=== PATIENT | female | born 1960 | race Two or more races ===

== ENCOUNTER 2016-11-28 08:08 | Day surgery (SDC) | payer BC ==
--- NOTE | 2016-11-27 12:22 | Pre-Procedure Note/Attestation ---
Pre-Procedure Note/Attestation Complete Prior to Procedure Planned Procedure: right Procedure Narrative: Rt shoulder scope, sad, mini amanda, rtc repair Indications for Procedure Pre-Operative Diagnosis: rt shoulder rtc tear Attestation I attest that I discussed the nature of the procedure; its benefits; risks and complications; and alternatives (and the risks and benefits of such alternatives ), prior to the procedure, with the patient (or the patient's legal junior sales representative). I attest that, if there was a reasonable possibility of needing a blood transfusion, the patient (or the patient's legal junior sales representative) was given the [facility] standardized written summary, pursuant to the Misael Yashira Blood Safety Act ([place] Health and Safety Code # 1645, as amended). I attest that I re-evaluated the patient just prior to the surgery and that there has been no change in the patient's H&P, except as documented below: NONE TEODORA OLIVERA Nov 27, 2016 12:22
[~2016-11-28] VITALS: Ht 152.4 cm; Wt 53.1 kg
[2016-11-28] VITALS (14 sets, daily range): BP systolic 86–119; BP diastolic 48–71
[~2016-11-28 08:08] MED LIST: CLARITIN5 MG ORAL; ceFAZolin 1gm in D5W 55ml IVP ONE; celeBREX 200mg Cap **SURGERY PATIENTS ONLY ORAL ONE; oxyCONTIN 20mg tab ORAL ONE
[2016-11-28] MEDS ORDERED: Ropivacaine 5mg/ml Vial 20ml INJ ONE (08:30)
[2016-11-28] MEDS ORDERED: LR 1000ml 1,000 ML IVLG SCH (08:43)
[2016-11-28] MEDS ORDERED: LORazepam Inj 2mg/ml 1ml IV PRN (08:45)
[2016-11-28] MEDS ORDERED: Norco 5mg/325mg tab ORAL PRN ×2 (08:45→18:01)
[2016-11-28] MEDS ORDERED: Atropine Inj 1mg/10ml Syr IV PRN (08:45)
[2016-11-28] MEDS ORDERED: Ketorolac 60mg Inj IV PRN (08:45)
[2016-11-28] MEDS ORDERED: Meperidine 25mg/0.5ml Inj (FOR RIGORS ONLY) IV PRN (08:45)
[2016-11-28] MEDS ORDERED: Midazolam 2mg/2ml Inj IVP PRN (08:45)
[2016-11-28] MEDS ORDERED: Norco 7.5mg/325mg tab ORAL PRN (08:45)
[2016-11-28] MEDS ORDERED: oxyCODONE HCL/Acetaminophen 5/325mg ORAL PRN (08:45)
[2016-11-28] MEDS ORDERED: fentaNYL 100 mcg/2 mL IV PRN (08:45)
[2016-11-28] MEDS ORDERED: Hydromorphone 0.5mg/0.5ml inj IVP PRN (08:45)
[2016-11-28] MEDS ORDERED: DiphenhydrAMINE 50mg/ml Inj IVP PRN (08:45)
[2016-11-28] MEDS ORDERED: Metoclopramide 10mg/2ml Inj IVP PRN (08:45)
[2016-11-28] MEDS ORDERED: Ketorolac 30mg Inj IV PRN (08:45)
[2016-11-28] MEDS ORDERED: NKM (09:25)
[2016-11-28] MEDS ORDERED: celeBREX 200mg Cap **SURGERY PATIENTS ONLY ORAL ONE (09:44)
[2016-11-28 09:59] LABS: ANION GAP 14 (5-15); CALCIUM 9.3 mg/dL (8.6-10.2); CARBON DIOXIDE 26 mEQ/L (20-30); CHLORIDE 101 mEQ/L (98-107); CREATININE 0.6 mg/dL (0.5-0.9); GLOMERULAR FILTRATION RATE > 60 mL/min (>60); HEMOLYSIS 26; INR 1.1 (0.9-1.1); POTASSIUM 4.1 mEQ/L (3.4-4.9); PROTHROMBIN TIME 11.4 SEC (9.30-11.50); SODIUM 141 mEQ/L (135-145)
[2016-11-28 10:04] LABS: BASOPHILS % (AUTO) 1.6 % (0.0-2.0); EOSINOPHILS % (AUTO) 4.3 % (0.0-3.0); LYMPHOCYTES % (AUTO) 34.3 % (20.0-45.0); MEAN CORPUSCULAR HEMOGLOBIN 33.1 PG (27.0-31.0); MEAN CORPUSCULAR HGB CONC 33.2 G/DL (32.0-36.0); MEAN CORPUSCULAR VOLUME 100 FL (80-99); MEAN PLATELET VOLUME 7.5 FL (6.5-10.1); MONOCYTES % (AUTO) 5.7 % (1.0-10.0); NEUTROPHILS % (AUTO) 54.2 % (45.0-75.0); PLATELET COUNT 216 K/UL (150-450); RED BLOOD COUNT 4.33 M/UL (4.20-5.40); RED CELL DISTRIBUTION WIDTH 11.4 % (11.6-14.8); WHITE BLOOD COUNT 4.1 K/UL (4.8-10.8)
[2016-11-28] MEDS ORDERED: NS Irrig 4000ml IRRIG ONE (11:30)
[2016-11-28] MEDS ORDERED: Dexamethasone 4mg/ml vial ONE (11:30)
[2016-11-28] MEDS ORDERED: Lidocaine 1% MPF 10mg/ml 5ml ONE (11:30)
[2016-11-28] MEDS ORDERED: Alfentanil 2ml Inj ONE (11:30)
[2016-11-28] MEDS ORDERED: Propofol 200mg/20ml IV ONE (11:30)
[2016-11-28] MEDS ORDERED: LR 1000ml ONE (11:30)
--- NOTE | 2016-11-28 12:23 | Anethesia Preoperative Eval ---
Anesthesia Pre-op PMH/ROS General Date of Evaluation: Nov 28, 2016 Time of Evaluation: 11:24 Anesthesiologist: Odalis ASA Score: ASA 2 Mallampati Score Class I : Soft palate, uvula, fauces, pillars visible Class II: Soft palate, uvula, fauces visible Class III: Soft palate, base of uvula visible Class IV: Only hard plate visible Mallampati Classification: Class II Surgeon: Carlyle Diagnosis: R Shoulder Pain Surgical Procedure: R Shoulder Arthroscopy Anesthesia History: none Family History: no anesthesia problems Allergies: Coded Allergies: No Known Allergies (Unverified , 02/24/15) Medications: see eMAR Past Medical History Cardiovascular: Reports: other - HL Anesthesia Pre-op Phys. Exam Physician Exam Last Vital Signs Date Time Temp Pulse Resp B/P (MAP) Pulse Ox O2 Delivery O2 Flow Rate FiO2 11/28/16 09:51 97.7 58 20 116/71 98 Room Air Constitutional: NAD Neurologic: CN 2-12 intact Cardiovascular: RRR Respiratory: CTA Gastrointestinal: S/NT/ND Airway Exam Mallampati Score: Class II MO: full ROM: full Teeth: intact Anesthesia Pre-op A/P Labs Hematology Test 11/28/16 09:40 White Blood Count 4.1 K/UL (4.8-10.8) L Red Blood Count 4.33 M/UL (4.20-5.40) Hemoglobin 14.4 G/DL (12.0-16.0) Hematocrit 43.2 % (37.0-47.0) Mean Corpuscular Volume 100 FL (80-99) H Mean Corpuscular Hemoglobin 33.1 PG (27.0-31.0) H Mean Corpuscular Hemoglobin Concent 33.2 G/DL (32.0-36.0) Red Cell Distribution Width 11.4 % (11.6-14.8) L Platelet Count 216 K/UL (150-450) Mean Platelet Volume 7.5 FL (6.5-10.1) Neutrophils (%) (Auto) 54.2 % (45.0-75.0) Lymphocytes (%) (Auto) 34.3 % (20.0-45.0) Monocytes (%) (Auto) 5.7 % (1.0-10.0) Eosinophils (%) (Auto) 4.3 % (0.0-3.0) H Basophils (%) (Auto) 1.6 % (0.0-2.0) Coagulation Test 11/28/16 09:40 Prothrombin Time 11.4 SEC (9.30-11.50) Prothromb Time International Ratio 1.1 (0.9-1.1) Activated Partial Thromboplast Time 31 SEC (23-33) Chemistry Test 11/28/16 09:40 Sodium Level 141 mEQ/L (135-145) Potassium Level 4.1 mEQ/L (3.4-4.9) Chloride Level 101 mEQ/L (98-107) Carbon Dioxide Level 26 mEQ/L (20-30) Anion Gap 14 (5-15) Blood Urea Nitrogen 15 mg/dL (7-23) Creatinine 0.6 mg/dL (0.5-0.9) Estimat Glomerular Filtration Rate > 60 mL/min (>60) Glucose Level 88 mg/dL (74-106) Calcium Level 9.3 mg/dL (8.6-10.2) Risk Assessment & Plan Assessment: ASA 2 Plan: GA, Supraclavicular Block Status Change Before Surgery: No Pre-Antibiotics Dru Grams Ancef IV Given Within 1 Hr of Incision: Yes Time Given: 11:51 Pavel Jacobo MD Nov 28, 2016 12:23
--- NOTE | 2016-11-28 12:24 | Immediate Post-Op Evaluation ---
Immediate Post-Op Evalulation Immediate Post-Op Evalulation Procedure: R Shoulder Arthroscopy Date of Evaluation: Nov 28, 2016 Time of Evaluation: 13:34 IV Fluids: 1000 LR Blood Products: 0 Estimated Blood Loss: 20 Urinary Output: 0 Blood Pressure Systolic: 116 Blood Pressure Diastolic: 71 Pulse Rate: 68 Respiratory Rate: 16 O2 Sat by Pulse Oximetry: 99 Temperature (Fahrenheit): 97.6 Pain Score (1-10): 1 Nausea: No Vomiting: No Complications 0 Patient Status: awake, reacts, patent, extubated, none Hydration Status: adequate Dru Grams Ancef IV Given Within 1 Hr of Incision: Yes Time Given: 11:51 Pavel Jacobo MD Nov 28, 2016 12:24
--- NOTE | 2016-11-28 12:25 | 48 Hour Post Anesthesia Eval ---
Post Anesthesia Evaluation Procedure: R Shoulder Arthroscopy Date of Evaluation: Nov 28, 2016 Time of Evaluation: 15:56 Blood Pressure Systolic: 121 0: 62 Pulse Rate: 71 Respiratory Rate: 18 Temperature (Fahrenheit): 98.2 O2 Sat by Pulse Oximetry: 100 Airway: patent Nausea: No Vomiting: No Pain Intensity: 1 Hydration Status: adequate Cardiopulmonary Status: Stable Mental Status/LOC: patient returned to baseline Follow-up Care/Observations: 0 Post-Anesthesia Complications: 0 Follow-up care needed: ready to discharge Pavel Jacobo MD Nov 28, 2016 12:25
--- NOTE | 2016-11-28 13:23 | Brief Operative Note ---
Immediate Post Operative Note Operative Note Chief Complaint: rt shoulder pain Pre-op Diagnosis: rt shoulder rtc tear Procedure: Rt shoulder scope, sad, mini amanda, rtc repair Post-op Diagnosis: same as pre-op Findings: consistent w/pre-op dx studies Surgeon: md prashanth Broadcast Field Supervisor: miesha hernandez Anesthesiologist: md dirk Anesthesia: general Specimen: none Complications: none Condition: stable Fluids: NS Estimated Blood Loss: minimal Drains: none Implant(s) used?: Yes - Biomet NATHALY HERNANDEZ Nov 28, 2016 13:23
[2016-11-28] MEDS ORDERED: D5 1/2NS 1,000 ML IV SCH (18:01)
[2016-11-28] MEDS ORDERED: Tylenol #3 tab (300mg/30mg) ORAL PRN (18:01)
[2016-11-28] MEDS ORDERED: HYDROmorphone 1mg/ml Carpuject SUBQ PRN (18:01)
--- NOTE | 2016-11-28 23:15 | Operative Note - Dictated ---
DATE OF OPERATION: 11/28/2016 SURGERY DATE: 11/28/2016. PREOPERATIVE DIAGNOSIS: Right shoulder rotator cuff tear. POSTOPERATIVE DIAGNOSES: 1. Right shoulder anterior labral fraying and tearing. 2. Right shoulder subacromial impingement. 3. Right shoulder full-thickness rotator cuff tear measuring 2.5 cm without significant retraction with attenuated tissue. PROCEDURE: 1. Right shoulder arthroscopy and extensive intra-articular shaving. 2. Right shoulder bursoscopy, bursectomy, and subacromial decompression. 3. Right shoulder mini-Chase procedure (resection inferior 30% of distal end of the clavicle). 4. Right shoulder arthroscopic rotator cuff repair using 3 Biomet 2.9 mm juggernaut anchors. SURGEON: Kenn Tadeo M.D. SCHOOL BUS DRIVER/MECHANIC: Carlota Johnston PA-C. Novelty Dipper was present during the actual operative portion of the case and was important and essential part of the operation. During the operation, the assistant professor of history held and operated the arthroscopic camera for visualization, assisted by manipulating the arm to help with visualization, and helped with essential parts of the repair process as necessary such as operating surgical instruments under surgeon supervision, suture management, and wound closures. ANESTHESIOLOGIST: Pavel Jacobo M.D. ANESTHESIA: LMA anesthesia. EBL: Minimal. COMPLICATIONS: None. Surgical Indication: Patient is a 56-year-old female who sustained the above injury to her shoulder. The patient was treated non-operative initially, but this did not alleviate the patients symptoms. Therefore, after discussing all non-surgical and surgical options, and discussing all foreseeable risk and benefits of surgery, the patient opted for surgical treatment as described above. Patient Positioning: Patient was brought to the operating room table and was placed on the operating room table. All pressure points were well padded. General anesthesia was induced and patient was then placed in the lateral decubitus position. All pressure points were well padded again and an axillary roll was placed. Patient shoulder was then prepped and draped in the usual sterile fashion. Time out was performed and the appropriate preoperative antibiotic was given by the anesthesiologist. Examination Of Shoulder Under Anesthesia: The shoulder was examined under anesthesia with all muscles well relaxed. The shoulder was forward flexed, abducted and was placed through full range of external and internal rotation. The anterior, posterior, and inferior stability of the shoulder was checked. The exam revealed no evidence of adhesive capsulitis and no evidence of instability. Portal Placement: The posterior portal was established 2 cm inferior and 1 cm medial to the edge of the posterior acromion. 1 cm skin incision was made using an eleven blade and using the blunt obturator, the cannula was gently placed through the capsule. The midglenoid portal was established just lateral to the coracoid process under direct visualization. Direction of the cannula was first established using a spinal needle, and subsequently, the cannula was placed through the capsule with a blunt obturator. Diagnostic Arthroscopy: The biceps tendon was probed and pulled through the joint for visualization. It appeared normal. The biceps anchor was palpated with a probe and was visualized. There was some fraying of the superior labrum, but there was no detachment of biceps from glenoid. The posterior labrum and axillary recess was visualized. This was normal and there was no evidence of loose cartilage or fragments in this area. The glenoid articular surface was visualized and it appeared normal. The articular surface of the rotator cuff was visualized and probed next. There was a full thickness of the rotator cuff tear measuring 2.5 to 3 cm. This involves supraspinatus and part of the infraspinatus. The humeral head articular surface was then visualized. There was no evidence of articular cartilage damage. Next the anterior labrum, middle gleno-humeral ligament, subscapularis tendon, and the anterior inferior gleno-humeral ligament were evaluated. These structures were completely normal. At this point, the scope was moved to the midglenoid portal and the posterior structures including the posterior labrum, posterior capsule and posterior cuff were visualized. These structures were completely normal. The subscapularis recess was devoid of any loose bodies and the anterior capsule was well attached to the humeral neck. The middle and anterior inferior glenohumeral ligament was visualized. These structures were completely normal. Operative Debridements And Repair: Care was given to all partial thickness tears and frayed structures in the shoulder joint. The frayed rotator cuff and labrum was debrided using a shaver initially through the anterior portal and subsequently through the posterior portal to complete the debridement. This allowed for smooth debridement of all affected structures and all loose fragments were removed. Diagnostic Bursascopy and Subacromial Decompression: The subacromion bursa was entered from the posterior portal. The anterior portal was established under the CA ligament using a switching stick. Subacromial arthroscopy was initiated. There was extensive bursitis and thickened and inflamed bursa tissue present. The CA ligament appeared to be scuffed and frayed. The shaver was placed through the anterior cannula and debridement of the hypertrophic bursa tissue was accomplished. Once visualization was adequate, a lateral portal was established using a blunt trochar in the mid portion of the acromion bone in the anterior-posterior direction and approximately 2 cm lateral to the lateral edge of the acromion. Using combination of shaver and electrocautery The CA ligament was released from the undersurface of the acromion and a complete bursectomy was accomplished. At this point, a subacromial decompression was performed using a jennifer initially taking off 5-8 mm of the anterolateral edge of the acromion from the lateral portal and viewing from the posterior portal. Then the lateral border of the undersurface of the acromion was decompressed to the same dept as the anterolateral edge. A posterior trough was then created in the acromion in line with the posterior edge of the clavicle. At this point, the scope was placed in the lateral portal and the subacromial decompression was performed from the posterior portal decompressing the undersurface of the acromion to dept of 5-8 mm. The decompression was performed anterior to the previously marked trough all the way medially to the level of the AC joint. At all times, care was given not to take off too much bone in order to avoid risk of fracture of the acromion. An excellent subacromial decompression was performed in this fashion. At this point, the bursal side of the rotator cuff was examined. All the bursa over the rotator cuff was removed and the rotator cuff was examined with a probe. The arm was placed into external rotation, neutral, and then internal rotation and there was evidence of 2.5 to 3 cm rotator cuff tear involving supraspinatus and bleeding edge of the infraspinatus. There was no significant retraction; however, there was significant attenuation and thinning of the tendon. The scope was then placed in the posterior portal and the subacromial decompression was rechecked to assure there is no area of bone spur that would be still impinging onto the rotator cuff. Evaluation Of Distal Clavicle And Distal Clavicle Resection: Care was given to the distal end of the clavicle. Using electrocautery and carmen, the distal end of the bursa and soft tissue around the distal end of the clavicle was debrided and cleaned. Care was given not to inflict excessive trauma to the ligaments of the AC joint. The distal end of the clavicle appeared to have an inferior osteophyte extending down well bellow the level of the acromion at the level of the AC joint. This appeared to be impinging onto the supraspinatus muscle belly and the musculotendenous junction of the rotator cuff. A mini-Chase procedure was performed by using a jennifer to resect the inferior 30% of the distal end of the clavicle. This decompression allowed space for the inferior structures to slide without impingment. This co-plained the inferior edge of the distal clavicle with the inferior edge of the acromion. The scope was placed in the lateral portal and the rotator cuff was visualized. The rotator cuff revealed a non-retracted crescent-shaped pattern. The rotator cuff foot print adjacent to the articular cartilage of the humeral head was identified. This area was debrided initially using carmen and subsequently using jennifer to provide adequate bleeding bony surface to accept the rotator cuff tendon. Attention was given to repair the rotator cuff with as little tension as possible. At this point, an arthroscopic punch was used to create holes for suture anchor placement at the medial edge of the foot print through separate stab wound incisions and an arthroscopic tap was used to prepare the holes. A 3 Biomet 2.9 mm juggernaut anchors double loaded with two #2 non-absorbable strong sutures were placed in previously prepared holes. Using standard arthroscopic suture passing instruments, the sutures were passed through the edge of rotator cuff with minimal trauma to the cuff tissue. Care was given to obtain large enough bites of the rotator cuff for the sutures to hold well. Once the sutures were passed through the cuff, the repair was secured onto the rotator cuff foot print using SMC sliding knots followed by 3 alternating-post half hitches. This allowed tension free repair of the rotator cuff with excellent stability and water tight closure. The cuff repair security was assured by palpating the repair with a probe. Condition At Discharge From Operating Room: The skin was re-approximated and sterile dressing and sling were applied. All lap counts and instrument counts were correct. Patient tolerated the procedure well without complications and was taken to the recovery room in stable conditions. Kenn Tacho Tadeo DR: FABIOLA JOB#: [id number] CC:
== END 2016-11-28 16:15 | disposition home or self-care (01) ==
LOC: SUR 08:08
DX: M75.101 Unspecified rotator cuff tear or rupture of right shoulder, not specified as traumatic (principal); M25.811 Other specified joint disorders, right shoulder; E78.5 Hyperlipidemia, unspecified
CPT/HCPCS: 23929; 29824; 29826; 29827; 36415; 80048; 85025; 85610; 85730; J0690; J1100; J2250; J2405; J2704; J2795; J3490; J7120; 94003; 94150; C1713

== ENCOUNTER 2017-02-06 11:00 | Outpatient (RCR) | payer BC ==
[~2017-02-06 11:00] MED LIST changes: +NKM; -ceFAZolin 1gm in D5W 55ml IVP ONE; -celeBREX 200mg Cap **SURGERY PATIENTS ONLY ORAL ONE; -oxyCONTIN 20mg tab ORAL ONE
== END 2017-02-08 | disposition home or self-care (01) ==
LOC: PTY 11:00
DX: M75.121 Complete rotator cuff tear or rupture of right shoulder, not specified as traumatic (principal)

== ENCOUNTER 2017-03-09 09:00 | Outpatient (RCR) | payer BC | END 2017-03-11 | disposition home or self-care (01) | LOC: PTY 09:00 | DX: M75.121 Complete rotator cuff tear or rupture of right shoulder, not specified as traumatic (principal) ==